=== PATIENT | female | born 2000 | race Hispanic/Latino ===

== ENCOUNTER 2022-08-18 02:35 | Emergency (ER) | payer OTHER ==
[~2022-08-18] VITALS: Ht 162.6 cm; Wt 67.6 kg
[2022-08-18 04:38] VITALS: BP 117/84
[2022-08-18] MEDS ORDERED: IBUPROFEN 600 MG TABLET ONE (04:41)
[2022-08-18] MEDS ORDERED: IBUPROFEN 600 MG TABLET PO ONE (05:00)
[2022-08-18] MEDS ORDERED: IBUP-2070 PO (05:16)
== END 2022-08-18 05:54 ==
LOC: EEVIPCON 02:35 → EDH 02:35
DX: S90.02XA Contusion of left ankle, initial encounter (principal); V89.2XXA Person injured in unspecified motor-vehicle accident, traffic, initial encounter; Y93.I9 Activity, other involving external motion; Y92.488 Other paved roadways as the place of occurrence of the external cause; Y99.8 Other external cause status
CPT/HCPCS: 29505; 73600